=== PATIENT | male | born 1980 | race Two or more races ===

== ENCOUNTER 2019-06-12 09:20 | Outpatient (CLI) | payer OTHER ==
[~2019-06-12 09:20] MED LIST: ABILIFY2 MG PO; HEMATRON DROPS30 ML; LAMICTAL25 MG PO; LEXAPRO20 MG PO; OXYCODONE HCL5 M1 PO; PROVENTIL0.5 ML/2.5
== END 2019-06-12 10:22 | disposition home or self-care (01) ==
LOC: NUCLEAR 09:20
DX: I87.2 Venous insufficiency (chronic) (peripheral) (principal)

== ENCOUNTER → 2022-08-13 | Emergency (ER) | payer OTHER ==
[~2022-08-13] VITALS: Ht 172.7 cm; Wt 101.2 kg
== END | disposition left against medical advice (07) ==
LOC: EDSEX 11:28 → ER 11:28
DX: S89.82XA Other specified injuries of left lower leg, initial encounter (principal); V48.0XXA Car driver injured in noncollision transport accident in nontraffic accident, initial encounter; W22.11XA Striking against or struck by driver side automobile airbag, initial encounter; Y93.89 Activity, other specified; Y92.413 State road as the place of occurrence of the external cause; S29.8XXA Other specified injuries of thorax, initial encounter; S99.822A Other specified injuries of left foot, initial encounter; S99.821A Other specified injuries of right foot, initial encounter; Z91.018 Allergy to other foods

== ENCOUNTER 2024-09-04 11:26 | Emergency (ER) | payer OTHER ==
[~2024-09-04] VITALS: Ht 172.7 cm; Wt 98.0 kg
[2024-09-04] MEDS ORDERED: DAFLONEX-XL 11300 MG PO (12:52)
[2024-09-04] MEDS ORDERED: TOPIRAMATE50 MG PO (12:52)
[2024-09-04] MEDS ORDERED: BUSPIRONE HCL5 MG PO (12:53)
[2024-09-04] MEDS ORDERED: PANTOPRAZOLE SO40 MG PO (12:53)
[2024-09-04] MEDS ORDERED: BUPROPION XL150 MG PO (12:53)
[2024-09-04] MEDS ORDERED: FAMOtidine 10 MG/ML (4ML VIAL) IV ONE (13:45)
[2024-09-04] MEDS ORDERED: ONDANSETRON HCL 2 MG/ML VIAL IV ONE (13:45)
[2024-09-04] MEDS ORDERED: HYOSCYAMINE SULFATE 0.125 MG TAB.SUBL SL ONE (13:45)
[2024-09-04] MEDS ORDERED: KETOROLAC TROMETHAMINE 30 MG VIAL IV ONE (13:45)
[2024-09-04] MEDS ORDERED: ONDANSETRON HCL 2 MG/ML VIAL ONE (15:07)
[2024-09-04] MEDS ORDERED: KETOROLAC TROMETHAMINE 30 MG VIAL ONE (15:07)
[2024-09-04] MEDS ORDERED: FAMOTIDINE/PF 20 MG/2 ML VIAL ONE (15:08)
[2024-09-04] MEDS ORDERED: HYOSCYAMINE SULFATE 0.125 MG TAB.SUBL ONE (15:08)
[2024-09-04 15:56] LABS: BASO % 0.2 % (0.1-1.2); EOS # 0.17 (0.04-0.54); EOS % 1.1 % (0.7-7.0); HEMATOCRIT 42.6 % (34.1-44.9); HEMOGLOBIN 13.9 g/dL (11.2-15.7); LYMPH # 2.17 (1.18-3.74); LYMPH % 14.6 % (19.3-53.1); MEAN CORPUSCULAR HEMOGLOBIN 26.2 pg (25.6-32.2); MONO # 0.89 (0.24-0.82); NEUT # 11.52 (1.56-6.13); NEUT % 77.8 % (34.0-71.1); PLATELET COUNT 235 K/uL (163-369)
[2024-09-04 16:14] LABS: INR 1.1; PARTIAL THROMBOPLASTIN TIME 28.8 SECONDS (22.0-34.0); PROTHROMBIN TIME 11.9 SECONDS (9.0-11.5)
[2024-09-04 16:19] LABS: BILIRUBIN TOTAL 0.56 mg/dL (0.3-1.2); CALCIUM 9.7 mg/dL (8.5-10.1); CREATININE SERUM 0.99 mg/dL (0.55-1.02); GFR 60.93; GLOBULINA 4.2 G/DL (2.4-3.5); POTASSIUM 3.78 mEq/L (3.5-5.1); TOTAL PROTEIN 8.2 gm/dL (6.4-8.2)
[2024-09-04] MEDS ORDERED: CIPRO500 MG PO (16:32)
[2024-09-04] MEDS ORDERED: METRONIDAZOLE500 MG PO (16:32)
[2024-09-04] MEDS ORDERED: PEPCID AC20 MG PO (16:32)
[2024-09-04] MEDS ORDERED: PROBIOTIC1 EAC2 PO (16:32)
[2024-09-04] MEDS ORDERED: KETO10TA2 PO (16:38)
[2024-09-04 17:00] LABS: PH,URINE 5.5 (5.0-8.0); URINE APPEARANCE Clear; URINE BILIRRUBIN Negative (NEGATIVE); URINE BLOOD Trace; URINE COLOR Yellow; URINE GLUCOSE Negative (NEGATIVE); URINE KETONE Trace (NEGATIVE); URINE LEUKOCYTE Trace; URINE NITRATE Negative; URINE PROTEIN Trace (NEGATIVE)
[2024-09-04 17:04] LABS: URINE EPITHELIAL CELLS 21.5 uL (0.0-38.8); URINE RBC 10.4 uL (0.0-20.8); URINE WBC 17.8 uL (0.0-23.2)
[2024-09-04 17:09] LABS: URINE CAST 0.14 uL (0.0-1.40)
== END 2024-09-04 16:54 | disposition home or self-care (01) ==
LOC: ER 11:26
PROVIDERS: General Practice
DX: R10.32 Left lower quadrant pain (principal); R10.9 Unspecified abdominal pain; Z91.018 Allergy to other foods
CPT/HCPCS: 36415; 74176; 96365; 99284; J1885; J2405; J3490

== ENCOUNTER 2024-12-08 09:13 | Outpatient (CLI) | payer OTHER ==
[~2024-12-08 09:13] MED LIST changes: +BUPROPION XL150 MG PO; +BUSPIRONE HCL5 MG PO; +CIPRO500 MG PO; +DAFLONEX-XL 11300 MG PO; +KETO10TA2 PO; +METRONIDAZOLE500 MG PO; +PANTOPRAZOLE SO40 MG PO; +PEPCID AC20 MG PO; +PROBIOTIC1 EAC2 PO; +TOPIRAMATE50 MG PO
== END 2024-12-08 09:15 | disposition home or self-care (01) ==
LOC: NUCLEAR 09:13
PROVIDERS: ATTEND Thoracic Surgery (Cardiothoracic Vascular Surgery)
DX: I73.9 Peripheral vascular disease, unspecified (principal)

== ENCOUNTER 2024-12-20 09:36 | Emergency (ER) | payer OTHER ==
[~2024-12-20] VITALS: Ht 172.7 cm; Wt 94.3 kg
[2024-12-20 10:02] VITALS: O2SAT 98
[2024-12-20] MEDS ORDERED: KETOROLAC TROMETHAMINE 30 MG VIAL IV ONE (10:30)
[2024-12-20] MEDS ORDERED: FAMOtidine 10 MG/ML (4ML VIAL) IV ONE (10:30)
[2024-12-20] MEDS ORDERED: DIATRIZOATE MEGLUMINE, SODIUM 30 ML BOTTLE PO ONE (10:30)
[2024-12-20] MEDS ORDERED: KETOROLAC TROMETHAMINE 30 MG VIAL ONE (10:32)
[2024-12-20] MEDS ORDERED: DIATRIZOATE MEGLUMINE, SODIUM 30 ML BOTTLE ONE (10:33)
[2024-12-20] MEDS ORDERED: FAMOTIDINE/PF 20 MG/2 ML VIAL ONE (10:33)
[2024-12-20 10:48] LABS: BASO % 0.2 % (0.1-1.2); EOS # 0.17 (0.04-0.54); EOS % 1.6 % (0.7-7.0); LYMPH # 2.04 (1.18-3.74); LYMPH % 19.7 % (19.3-53.1); MEAN PLATELET VOLUME 10.80 fl (9.4-12.4); MONO # 0.55 (0.24-0.82); MONO % 5.3 % (4.7-12.5); NEUT # 7.51 (1.56-6.13); NEUT % 72.8 % (34.0-71.1); RED CELL DISTRIBUTION WIDTH 15.1 % (11.6-14.4)
[2024-12-20 11:22] LABS: URINE APPEARANCE Clear; URINE BILIRRUBIN Negative (NEGATIVE); URINE BLOOD Trace; URINE COLOR Yellow; URINE GLUCOSE Negative (NEGATIVE); URINE KETONE Negative (NEGATIVE); URINE LEUKOCYTE Trace; URINE NITRATE Negative; URINE PROTEIN Negative (NEGATIVE); URINE UROBILINOGEN 0.2 E.U./dl
[2024-12-20 11:26] LABS: URINE BACTERIA 425.8 uL (0.0-1933); URINE EPITHELIAL CELLS 14.3 uL (0.0-38.8); URINE RBC 6.0 uL (0.0-20.8); URINE WBC 10.1 uL (0.0-23.2)
[2024-12-20 11:32] LABS: URINE CAST 0.14 uL (0.0-1.40)
[2024-12-20 11:39] LABS: INR 1.07
[2024-12-20 12:12] LABS: ALT/SGPT 22.0 U/L (12-78); AST/SGOT 13.0 U/L (15-37); BILIRUBIN TOTAL 0.59 mg/dL (0.3-1.2); BUN CREA RATIO 20.0 (7.0-25.0); CREATININE SERUM 0.9 mg/dL (0.55-1.02); GFR 68.02; GLOBULINA 3.4 G/DL (2.4-3.5); GLUCOSE FASTING 87.0 mg/dL (65-100); OSMOLALITY SERUM 288.0 MOSM/KG (275-295)
[2024-12-20] MEDS ORDERED: LEVSIN/SL0.125 MG SL (14:39)
[2024-12-20 14:47] VITALS: BP 112/75
== END 2024-12-20 14:49 | disposition home or self-care (01) ==
LOC: ER 09:36
PROVIDERS: General Practice
DX: R10.32 Left lower quadrant pain (principal); R10.2 Pelvic and perineal pain; Z91.018 Allergy to other foods
CPT/HCPCS: 36415; 74177; 96365; 99284; J1885; J3490; Q9965